=== PATIENT | female | born 1970 | race Hispanic/Latino ===

== ENCOUNTER 2019-03-02 08:29 | Outpatient (CLI) | payer BC ==
--- NOTE | 2019-03-02 16:07 | Mammography Report ---
BILATERAL SCREENING MAMMOGRAM DIGITAL WITH CAD 3D TOMOSYNTHESIS INDICATION: Screening. COMPARISONS: None. FINDINGS: 2D and 3D craniocaudal and mediolateral oblique views of both breasts were obtained utilizi [employer] digital acquisition. The breasts are heterogeneously dense, which may obscure small masses. Right upper outer partially circumscribed focal asymmetry requires additional imaging. It is identified on image 31 of both the MLO and CC chaparrita series. There are questionable associated calcifications. The l eft breast is negative. In addition to standard review, the examination was analyzed for possible abnormalities using a [employer]-assisted detection device (iCAD). IMPRESSION: Right focal asymmetry with questionable calcifications requiring additional imaging. Recommend recall for right ML and spot magnification ML and CC views and right breast ultrasound if needed. BI-RADS CATEGORY 0: Needs Additional Imaging COMMENT: Patient follow-up letters are generated by our [employer] App application. Signer Name: Leodan Burton MD Signed: 03/02/2019 4:02 PM Workstation Name: [id number]
--- NOTE | 2019-03-02 16:07 | Mammography Report ---
BILATERAL SCREENING MAMMOGRAM DIGITAL WITH CAD 3D TOMOSYNTHESIS INDICATION: Screening. COMPARISONS: None. FINDINGS: 2D and 3D craniocaudal and mediolateral oblique views of both breasts were obtained utilizi [employer] digital acquisition. The breasts are heterogeneously dense, which may obscure small masses. Right upper outer partially circumscribed focal asymmetry requires additional imaging. It is identified on image 31 of both the MLO and CC chaparrita series. There are questionable associated calcifications. The l eft breast is negative. In addition to standard review, the examination was analyzed for possible abnormalities using a [employer] ter-assisted detection device (iCAD). IMPRESSION: Right focal asymmetry with questionable calcifications requiring additional imaging. Recommend recall for right ML and spot magnification ML and CC views and right breast ultrasound if needed. BI-RADS CATEGORY 0: Needs Additional Imaging COMMENT: Patient follow-up letters are generated by our [employer] application. Signer Name: Leodan Burton MD Signed: 03/02/2019 4:02 PM Workstation Name: [id number]
== END 2019-03-02 08:30 | disposition home or self-care (01) ==
LOC: SPVWC 08:29
PROVIDERS: ATTEND Obstetrics & Gynecology
DX: Z12.31 Encounter for screening mammogram for malignant neoplasm of breast (principal)
CPT/HCPCS: 77063; 77067

== ENCOUNTER 2019-03-25 08:30 | Outpatient (CLI) | payer BC ==
--- NOTE | 2019-03-25 09:39 | Mammography Report ---
DIGITAL DIAGNOSTIC MAMMOGRAM WITH CAD, -- 03/25/2019 INDICATION: Recall to evaluate asymmetries identified on a screening chaparrita. ABNORMAL MAMMO TECHNIQUE: Digital right mammographic imaging was performed. Magnification views were obtained. This examination was interpreted with the benefit of Computer-aided Detection analysis. COMPARISON: 03/02/2019 screening 2-D and 3-D mammograms FINDINGS: Breast Density: The breasts are heterogeneously dense, which may obscure small masses. There is no evidence of dominant mass, suspicious calcifications or architectural distortion in the r ight breast. Lateral medial and CC magnification views demonstrate benign calcifications with layerin g on the lateral view. No mass or architectural distortion. IMPRESSION: Follow up recommendation: Routine yearly BI-RADS Category 2: Benign. A "normal" or negative report should not discourage follow up or biopsy of a clinically significant f inding. A written summary of these findings will be mailed to the patient. The patient will be entered into a mammography reporting system which will generate a reminder letter for the patient's next appointmen t at the appropriate interval. According to the [employer], yearly mammograms are recommended starting at age 40 and continuing as long as a woman is in good health. Breast MRI is recommended for women with an dominguez roximately 20-25% or greater lifetime risk of breast cancer, including women with a strong family his tory of breast or ovarian cancer and women who have been treated for Hodgkin's disease. Signer Name: Leodan Burton MD Signed: 03/25/2019 9:34 AM Workstation Name: [id number]
== END 2019-03-25 08:31 | disposition home or self-care (01) ==
LOC: SPVWC 08:30
PROVIDERS: ATTEND Obstetrics & Gynecology
DX: R92.8 Other abnormal and inconclusive findings on diagnostic imaging of breast (principal)